=== PATIENT | female | born 2000 | race African-American/Black ===

== ENCOUNTER 2018-06-21 16:32 | Emergency (ER) | payer SELFPAY ==
[~2018-06-21] VITALS: Ht 160 cm; Wt 49.8 kg
[2018-06-21 18:31] LABS: CLARITY URINE CLOUDY (CLEAR); COLOR URINE YELLOW (YELLOW); KETONES URINE 1+ (NEGATIVE); LEUKOCYTE ESTERASE URINE 2+ (NEGATIVE); NITRITE URINE POSITIVE (NEGATIVE); OCCULT BLOOD URINE 2+ (NEGATIVE); PH URINE 5.5 (4.5-8.0); PROTEIN URINE 1+ (NEGATIVE); SPECIFIC GRAVITY URINE 1.021 (1.005-1.030); UROBILINOGEN URINE 0.2 E.U./dL (0.2-1.0)
[2018-06-21 19:08] VITALS: BP 135/78
== END 2018-06-21 19:09 | disposition home or self-care (01) ==
LOC: ER 16:32
DX: N39.0 Urinary tract infection, site not specified (principal)
CPT/HCPCS: 81025; 99283

== ENCOUNTER 2018-09-04 16:14 | Emergency (ER) | payer MEDICAID ==
[~2018-09-04] VITALS: Ht 160 cm; Wt 49.0 kg
[2018-09-04] MEDS ORDERED: ONDANSETRON 4MG ODT PO STA (18:25)
[2018-09-04] MEDS ORDERED: SODIUM CHLORIDE 0.9% 1,000 ML IV ONE (18:25)
[2018-09-04 18:27] LABS: CLARITY URINE CLEAR (CLEAR); COLOR URINE YELLOW (YELLOW); KETONES URINE TRACE (NEGATIVE); LEUKOCYTE ESTERASE URINE NEGATIVE (NEGATIVE); NITRITE URINE NEGATIVE (NEGATIVE); OCCULT BLOOD URINE NEGATIVE (NEGATIVE); PH URINE 6.5 (4.5-8.0); PROTEIN URINE 1+ (NEGATIVE); SPECIFIC GRAVITY URINE 1.025 (1.005-1.030)
[2018-09-04 19:18] LABS: BASOPHILS % 0.2 % (0.0-2.0); EOSINOPHILS % 0.2 % (0.0-5.0); HEMATOCRIT. 42.7 % (36.0-48.0); HEMOGLOBIN. 14.3 g/dL (12.0-16.0); LYMPHOCYTES % 30.8 % (20.0-50.0); MEAN CORPUSCULAR HEMOGLOBIN 31.7 pg (28.0-32.0); MEAN CORPUSCULAR VOLUME 94.5 fL (81.0-99.0); MEAN PLATELET VOLUME 7.6 fl (7.4-10.4); MONOCYTES % 8.4 % (2.0-8.0); NEUTROPHILS % 60.4 % (40.0-76.0); PLATELET 218 x1000/uL (130-400); RED BLOOD CELL COUNT 4.52 mill/uL (4.2-5.4)
[2018-09-04 19:29] LABS: CHLORIDE 108 mEq/L (98-107)
[2018-09-04 22:51] VITALS: BP 116/71
== END 2018-09-04 22:56 | disposition home or self-care (01) ==
LOC: ER 16:14
DX: R53.1 Weakness (principal); E05.90 Thyrotoxicosis, unspecified without thyrotoxic crisis or storm
CPT/HCPCS: 36415; 80053; 81003; 81025; 83690; 84439; 84443; 84480; 85025; 93005; 99284; J7030

== ENCOUNTER 2018-12-03 15:35 | Emergency (ER) | payer MEDICAID ==
[~2018-12-03] VITALS: Ht 167.6 cm; Wt 52.0 kg
[2018-12-03 15:38] VITALS: BP 119/67
[2018-12-03] MEDS ORDERED: IBUPROFEN 600MG TABLET PO ONE (17:15)
== END 2018-12-03 17:39 | disposition home or self-care (01) ==
LOC: ER 15:35
DX: N94.89 Other specified conditions associated with female genital organs and menstrual cycle (principal); L76.22 Postprocedural hemorrhage of skin and subcutaneous tissue following other procedure; E05.90 Thyrotoxicosis, unspecified without thyrotoxic crisis or storm; Z98.890 Other specified postprocedural states
CPT/HCPCS: 99283; A4217; Z7610

== ENCOUNTER 2019-11-04 16:54 | Emergency (ER) | payer MEDICAID ==
[~2019-11-04] VITALS: Ht 160 cm; Wt 49.0 kg
[2019-11-04 17:04] VITALS: BP 121/69
[2019-11-04] MEDS ORDERED: METH10TA7 PO (17:06)
[2019-11-04 18:07] LABS: CLARITY URINE CLEAR (CLEAR); COLOR URINE YELLOW (YELLOW); KETONES URINE NEGATIVE (NEGATIVE); LEUKOCYTE ESTERASE URINE NEGATIVE (NEGATIVE); NITRITE URINE NEGATIVE (NEGATIVE); OCCULT BLOOD URINE NEGATIVE (NEGATIVE); PH URINE 7.5 (4.5-8.0); PROTEIN URINE NEGATIVE (NEGATIVE); SPECIFIC GRAVITY URINE 1.012 (1.005-1.030); UROBILINOGEN URINE 0.2 E.U./dL (0.2-1.0)
[2019-11-08 04:11] LABS: NEISSERIA GONORRHOEAE NAA Negative (Negative)
== END 2019-11-04 18:31 | disposition home or self-care (01) ==
LOC: ER 16:54
DX: B37.2 Candidiasis of skin and nail (principal); Z98.890 Other specified postprocedural states
CPT/HCPCS: 81003; 87491; 87591; 99283

== ENCOUNTER 2023-04-05 15:19 | Emergency (ER) | payer MEDICAID ==
[~2023-04-05] VITALS: Ht 160 cm; Wt 52.0 kg
[~2023-04-05 15:19] MED LIST: METH-372 PO
[2023-04-05 15:40] VITALS: BP 114/73; PULSE 88; RESP 16; TEMP 99.7; O2SAT 99
[2023-04-05] MEDS ORDERED: IBUPROFEN 600MG TABLET PO STA (16:36)
[2023-04-05] MEDS ORDERED: IBUP-2028 MT (18:45)
== END 2023-04-05 16:53 | disposition left against medical advice (07) ==
LOC: ER 15:19
DX: S16.1XXA Strain of muscle, fascia and tendon at neck level, initial encounter (principal); M79.605 Pain in left leg; V49.9XXA Car occupant (driver) (passenger) injured in unspecified traffic accident, initial encounter; Y93.89 Activity, other specified; Y92.89 Other specified places as the place of occurrence of the external cause; Y99.8 Other external cause status
CPT/HCPCS: 81025; 99283

== ENCOUNTER 2023-04-05 17:23 | Emergency (ER) | payer MEDICAID ==
[~2023-04-05] VITALS: Ht 165.1 cm; Wt 59.0 kg
[2023-04-05 17:29] VITALS: O2SAT 100
[2023-04-05] MEDS ORDERED: IBUPROFEN 400MG TABLET PO ONE (18:45)
[2023-04-05] MEDS ORDERED: IBUP-2028 MT (18:45)
[2023-04-05 19:54] VITALS: BP 120/82; PULSE 70; RESP 18; TEMP 98.6
== END 2023-04-05 19:55 | disposition home or self-care (01) ==
LOC: ER 17:23
DX: R51.9 Headache, unspecified (principal); M79.605 Pain in left leg; M54.2 Cervicalgia; Z98.890 Other specified postprocedural states; Z86.39 Personal history of other endocrine, nutritional and metabolic disease; V99.XXXA Unspecified transport accident, initial encounter; Y93.89 Activity, other specified; Y92.89 Other specified places as the place of occurrence of the external cause; Y99.8 Other external cause status
CPT/HCPCS: 99282